=== PATIENT | male | born 1990 | race African-American/Black ===

== ENCOUNTER 2017-08-10 10:47 | Emergency (ER) | payer OTHER | END 2017-08-10 12:46 | disposition home or self-care (01) | LOC: D.ER 10:47 | DX: L02.413 Cutaneous abscess of right upper limb (principal); F17.200 Nicotine dependence, unspecified, uncomplicated ==

== ENCOUNTER 2017-09-15 13:53 | Emergency (ER) | payer OTHER ==
[2017-09-15 18:34] LABS: APPEARANCE HAZY (CLEAR); BILIRUBIN 2+ (NEGATIVE); COLOR YELLOW (YELLOW); GLUCOSE NEGATIVE (NEGATIVE); KETONE NEGATIVE (NEGATIVE); NITRITE NEGATIVE (NEGATIVE); PROTEIN NEGATIVE (NEGATIVE); SPECIFIC GRAVITY 1.015 (1.005-1.020)
[2017-09-15 18:35] LABS: RED CELLS - URINE 0-5 /hpf (0-5)
[2017-09-15 18:36] LABS: BACTERIA FEW /hpf (NONE SEEN)
[2017-09-15 18:38] LABS: AMORPHOUS SEDIMENT <1+ /lpf (NONE SEEN)
== END 2017-09-15 17:05 | disposition home or self-care (01) ==
LOC: D.ER 13:53
PROVIDERS: Emergency Medicine
DX: A54.01 Gonococcal cystitis and urethritis, unspecified (principal); F17.200 Nicotine dependence, unspecified, uncomplicated

== ENCOUNTER 2018-03-20 12:26 | Emergency (ER) | payer MEDICAID ==
[~2018-03-20] VITALS: Ht 175.3 cm; Wt 79.5 kg
[2018-03-20 12:39] VITALS: BP 127/70; Ht 175.3 cm; Wt 79.5 kg
== END 2018-03-20 14:06 | disposition left against medical advice (07) ==
LOC: D.ER 12:26
DX: N48.89 Other specified disorders of penis (principal)

== ENCOUNTER 2018-03-22 18:38 | Emergency (ER) | payer MEDICAID ==
[2018-03-22 18:45] VITALS: Ht 175.3 cm
[2018-03-22] MEDS ORDERED: ZOVIRAX400 MG PO (19:58)
[2018-03-22] MEDS ORDERED: CLEOCIN HCL300 MG PO (20:01)
[2018-03-22 20:12] VITALS: BP 139/82
[2018-03-22 21:02] LABS: APPEARANCE CLEAR (CLEAR); BILIRUBIN NEGATIVE (NEGATIVE); COLOR YELLOW (YELLOW); GLUCOSE NEGATIVE (NEGATIVE); KETONE NEGATIVE (NEGATIVE); NITRITE NEGATIVE (NEGATIVE); PROTEIN TRACE mg/dL (NEGATIVE); UROBILINOGEN NORMAL (NORMAL)
[2018-03-22 21:04] LABS: BACTERIA FEW /hpf (NONE SEEN); RED CELLS - URINE OCC /hpf (0-5); SPERMATOZOA 0-5 /hpf (NONE SEEN); WHITE CELLS - URINE 0-5 /hpf (0-5)
[2018-03-24 07:29] LABS: RAPID PLASMA REAGIN Non Reactive (Non Reactive)
[2018-03-25 21:06] LABS: HSV 1 DNA (PCR) Negative (Negative); HSV 2 DNA (PCR) Negative (Negative)
[2018-03-26 14:13] LABS: HIV-1 RNA BY PCR <20 (())
[2018-03-26 22:06] LABS: CHLAMYDIA TRACHOMATIS, NAA Negative (Negative)
== END 2018-03-22 20:14 | disposition home or self-care (01) ==
LOC: D.ER 18:38
PROVIDERS: Family Medicine
DX: A60.01 Herpesviral infection of penis (principal); B95.62 Methicillin resistant Staphylococcus aureus infection as the cause of diseases classified elsewhere; F17.200 Nicotine dependence, unspecified, uncomplicated

== ENCOUNTER 2018-06-26 13:31 | Emergency (ER) | payer SELFPAY ==
[~2018-06-26] VITALS: Ht 175.3 cm; Wt 72.7 kg
[~2018-06-26 13:31] MED LIST: CLEOCIN HCL300 MG PO; ZOVIRAX400 MG PO
[2018-06-26 13:33] VITALS: Ht 175.3 cm; Wt 72.7 kg
[2018-06-26 14:08] LABS: BASOPHILS 0.6 % (0-2); EOSINOPHILS 0.4 % (0-7); HEMATOCRIT 44.4 % (42.0-54.0); HEMOGLOBIN 15.3 g/dL (13.5-17.5); IMMATURE GRANULOCYTES 0.2 % (0-5); LYMPHOCYTES 37.7 % (15-50); MCH 30.1 pg (26.0-34.0); MCHC 34.5 g/dL (31.0-37.0); MCV 87.2 fL (80.0-100.0); MEAN PLATELET VOLUME 9.6 fL (7.4-10.4); MONOCYTES 12.4 % (2-11); NEUTROPHILS 48.7 % (40-80); PLATELET COUNT 188 10x3/uL (130-400); RBC 5.09 10x6/uL (4.20-6.10); RDW 13.5 % (11.5-14.5); WBC 5.2 10x3/uL (4.8-10.8)
[2018-06-26 14:15] LABS: APTT 34.5 SECONDS (22.8-39.4); INR 1.12 (0.85-1.17); PROTIME 13.9 SECONDS (11.6-15.0)
[2018-06-26 14:23] LABS: ALBUMIN 4.1 g/dL (3.4-5.0); ALKALINE PHOSPHATASE 52 U/L (46-116); ALT (SGPT) 29 U/L (10-68); BILIRUBIN - TOTAL 0.61 mg/dL (0.2-1.3); CALC OSMOLALITY 279 mosm/kg (275-300); CALCIUM 9.4 mg/dL (8.5-10.1); CARBON DIOXIDE 27.9 mmol/L (21.0-32.0); CHLORIDE - SERUM 102 mmol/L (98-107); CREATININE - SERUM 1.1 mg/dL (0.6-1.3); GLUCOSE 84 mg/dL (74-106); POTASSIUM - SERUM 3.9 mmol/L (3.5-5.1); SODIUM 141 mmol/L (136-145); UREA NITROGEN 12 mg/dL (7-18); eGFR NON AFRICAN AMERICAN 85 mL/min (90-120)
[2018-06-26 14:35] LABS: CKMB 3.9 U/L (0.0-3.6); CREATINE KINASE 695 UL (21-232); TROPONIN-I < 0.017 ng/mL (0.000-0.060)
[2018-06-26] MEDS ORDERED: VALTREX1000 MG PO (17:47)
[2018-06-26 17:53] LABS: UDS - AMPHET POSITIVE QUAL (NEGATIVE); UDS - BARB NEGATIVE QUAL (NEGATIVE); UDS - BENZO NEGATIVE QUAL (NEGATIVE); UDS - COCAINE NEGATIVE QUAL (NEGATIVE); UDS - OPIATE NEGATIVE QUAL (NEGATIVE); UDS - PCP NEGATIVE QUAL (NEGATIVE); UDS - THC NEGATIVE QUAL (NEGATIVE)
[2018-06-26 17:55] LABS: APPEARANCE CLEAR (CLEAR); BILIRUBIN NEGATIVE (NEGATIVE); COLOR YELLOW (YELLOW); GLUCOSE NEGATIVE (NEGATIVE); KETONE NEGATIVE (NEGATIVE); NITRITE NEGATIVE (NEGATIVE); PROTEIN NEGATIVE (NEGATIVE); SPECIFIC GRAVITY 1.015 (1.005-1.020); UROBILINOGEN NORMAL (NORMAL)
[2018-06-26 18:04] VITALS: BP 128/78
== END 2018-06-26 18:05 ==
LOC: D.ER 13:31
PROVIDERS: Family Medicine
DX: F15.20 Other stimulant dependence, uncomplicated (principal); A60.01 Herpesviral infection of penis; R07.89 Other chest pain; Z20.2 Contact with and (suspected) exposure to infections with a predominantly sexual mode of transmission